=== PATIENT | female | born 1940 | race African-American/Black ===

== ENCOUNTER 2018-11-07 00:13 | Emergency (ER) | payer OTHER ==
[~2018-11-07] VITALS: Ht 165.1 cm; Wt 77.0 kg
[~2018-11-07 00:13] MED LIST: ASPI-986 PO; FURO-152 PO; INS7030 SUBCUT; LOVA40TA73 PO
[2018-11-07] MEDS ORDERED: ACETAMINOPHEN 325MG TABLET PO ONE (03:00)
[2018-11-07 08:00] VITALS: BP 158/68
== END 2018-11-07 08:19 | disposition home or self-care (01) ==
LOC: ER 00:13
DX: S80.12XA Contusion of left lower leg, initial encounter (principal); M25.552 Pain in left hip; M79.662 Pain in left lower leg; E78.00 Pure hypercholesterolemia, unspecified; I10 Essential (primary) hypertension; W01.0XXA Fall on same level from slipping, tripping and stumbling without subsequent striking against object, initial encounter; Y93.01 Activity, walking, marching and hiking; Y92.9 Unspecified place or not applicable; Z79.4 Long term (current) use of insulin; Z88.5 Allergy status to narcotic agent; Z79.82 Long term (current) use of aspirin; Z86.73 Personal history of transient ischemic attack (TIA), and cerebral infarction without residual deficits
CPT/HCPCS: 72100; 73522; 73552; 99283

== ENCOUNTER 2019-12-14 20:20 | Emergency (ER) | payer OTHER ==
[~2019-12-14] VITALS: Ht 167.6 cm; Wt 68.0 kg
[2019-12-14] MEDS ORDERED: EPINEPHRINE 0.1MG/ML (1:10,000) 10ML SYR ONE (20:45)
== END 2019-12-14 20:55 | disposition expired ==
LOC: ER 20:20 → EDBD 20:20 → ER 20:55
DX: I46.9 Cardiac arrest, cause unspecified (principal); I10 Essential (primary) hypertension; E11.9 Type 2 diabetes mellitus without complications; Z88.5 Allergy status to narcotic agent; Z79.82 Long term (current) use of aspirin
CPT/HCPCS: 31500; 82962; 92950; 99291; J3490